=== PATIENT | male | born 1995 | race African-American/Black ===

== ENCOUNTER 2022-02-22 18:43 | Emergency (ER) | payer OTHER ==
[~2022-02-22] VITALS: Ht 182.9 cm; Wt 100.0 kg
[2022-02-22 19:12] VITALS: BP 144/94
[2022-02-23] MEDS ORDERED: PANTOPRAZOLE SODIUM 40 MG/VIAL IV STA (00:10)
[2022-02-23] MEDS ORDERED: VISCOUS LIDOCAINE 2% 15 ML UDC PO STA (00:10)
[2022-02-23] MEDS ORDERED: MAGNESIUM/ALUMINUM HYDROXIDE/SIMETHICONE 30ML UDC PO STA (00:10)
[2022-02-23] MEDS ORDERED: ONDANSETRON HCL 4MG/2ML INJ IV STA (00:10)
[2022-02-23] MEDS ORDERED: SODIUM CHLORIDE 0.9% 1,000 ML IV ONE (00:15)
[2022-02-23] MEDS ORDERED: IBUPROFEN 600MG TABLET PO ONE (00:30)
[2022-02-23 00:35] LABS: BASOPHILS % 0.4 % (0.0-2.0); EOSINOPHILS % 1.4 % (0.0-5.0); HEMATOCRIT. 46.9 % (42.0-52.0); HEMOGLOBIN. 15.9 g/dL (14.0-18.0); LYMPHOCYTES % 30.2 % (20.0-50.0); MEAN CORPUSCULAR HEMOGLOBIN 29.4 pg (28.0-32.0); MEAN CORPUSCULAR VOLUME 86.5 fL (80.0-94.0); MEAN PLATELET VOLUME 8.2 fl (7.4-10.4); MONOCYTES % 5.9 % (2.0-8.0); NEUTROPHILS % 62.1 % (40.0-76.0); PLATELET 254 x1000/uL (130-400); RED BLOOD CELL COUNT 5.42 mill/uL (4.7-6.1); RED CELL DISTRIBUTION WIDTH 13.8 % (11.6-14.6)
[2022-02-23 01:40] LABS: CHLORIDE 101 mEq/L (98-107)
[2022-02-23 01:56] LABS: ETHANOL BLOOD < 10 mg/dL
[2022-02-23] MEDS ORDERED: ACET-2708 MT (02:12)
[2022-02-23] MEDS ORDERED: ALBU6.7H9 INH (02:12)
[2022-02-23] MEDS ORDERED: ONDA4TAB50 MT (02:13)
[2022-02-23] MEDS ORDERED: MAGNESIUM/ALUMINUM HYDROXIDE/SIMETHICONE 30ML UDC PO NR (02:15)
[2022-02-23] MEDS ORDERED: PANTOPRAZOLE SODIUM 40 MG/VIAL IV NR (02:15)
[2022-02-23] MEDS ORDERED: VISCOUS LIDOCAINE 2% 15 ML UDC PO NR (02:15)
[2022-02-23] MEDS ORDERED: ONDANSETRON HCL 4MG/2ML INJ IV NR (02:15)
[2022-02-23 02:30] LABS: CLARITY URINE CLEAR (CLEAR); COLOR URINE YELLOW (YELLOW); KETONES URINE NEGATIVE (NEGATIVE); LEUKOCYTE ESTERASE URINE NEGATIVE (NEGATIVE); NITRITE URINE NEGATIVE (NEGATIVE); OCCULT BLOOD URINE NEGATIVE (NEGATIVE); PROTEIN URINE NEGATIVE (NEGATIVE); SPECIFIC GRAVITY URINE 1.021 (1.005-1.030); UROBILINOGEN URINE 0.2 E.U./dL (0.2-1.0)
[2022-02-23 02:40] LABS: *AMPHETAMINES SCREEN URINE NEGATIVE (NEGATIVE); *BARBITURATES SCREEN URINE NEGATIVE (NEGATIVE); *BENZODIAZEPINES SCREEN URINE NEGATIVE (NEGATIVE); *COCAINE SCREEN URINE NEGATIVE (NEGATIVE); CANNABINOID URINE SCREEN NEGATIVE (NEGATIVE); METHADONE URINE SCREEN NEGATIVE (NEGATIVE); OPIATES URINE SCREEN NEGATIVE (NEGATIVE); PHENCYCLIDINE URINE SCREEN NEGATIVE (NEGATIVE)
== END 2022-02-23 02:39 | disposition home or self-care (01) ==
LOC: ER 18:43
DX: R51.9 Headache, unspecified (principal); R07.89 Other chest pain; R94.31 Abnormal electrocardiogram [ECG] [EKG]
CPT/HCPCS: 36415; 71045; 76705; 80053; 80305; 80320; 81003; 83690; 84484; 85025; 85379; 96361; 96374; 96375; 99285; C9113; J2405; J7030; G0480